=== PATIENT | male | born 1995 | race Two or more races ===

== ENCOUNTER 2016-06-03 08:50 | Emergency (ER) | payer SELFPAY ==
[2016-06-03 09:08] VITALS: BP 147/75
[2016-06-03] MEDS ORDERED: NORMAL SALINE 1000 ML 1,000 ML IV ONE (09:42)
[2016-06-03] MEDS ORDERED: ONDANSETRON 4 MG TAB.RAPDIS PO ONE (09:48)
[2016-06-03] MEDS ORDERED: ONDANSETRON 4 MG TAB.RAPDIS ONE (09:48)
--- NOTE | 2016-06-03 11:17 | ER Document Report ---
ED General - General Chief Complaint: Abdominal Pain Stated Complaint: VOMITING TRAVEL OUTSIDE OF THE [place] IN LAST 30 DAYS: No - HPI Patient complains to provider of: nausea vomiting diarrhea Notes: Patient is being seen today for nausea vomiting diarrhea upper and lower abdominal pain. Patient states started earlier this morning. Patient states he was drinking last night approximately 2 shots. Patient states he vomited this morning there worsen streaks of blood in his vomitus. Patient denies a history of alcoholism or drinking daily. No smoking or drugs. Upon my evaluation patient is resting comfortably. Denies any recent antibiotics denies any fevers chills denies any sick contacts. - Related Data Allergies/Adverse Reactions: No Known Allergies Allergy (Unverified 06/03/16 09:08) Past Medical History - Social History Smoking Status: Never Smoker Chew tobacco use (# tins/day): No Frequency of alcohol use: Social Drug Abuse: None Family History: Reviewed & Not Pertinent Patient has suicidal ideation: No Patient has homicidal ideation: No Renal/ Medical History: Denies: Hx Peritoneal Dialysis Review of Systems - Review of Systems Constitutional: No symptoms reported EENT: No symptoms reported Cardiovascular: No symptoms reported Respiratory: No symptoms reported Gastrointestinal: Abdominal pain, Diarrhea, Nausea, Vomiting Genitourinary: No symptoms reported Male Genitourinary: No symptoms reported Musculoskeletal: No symptoms reported Skin: No symptoms reported Hematologic/Lymphatic: No symptoms reported Neurological/Psychological: No symptoms reported -: Yes All other systems reviewed and negative Physical Exam - Vital signs Vitals: Temp Pulse Resp BP Pulse Ox 97.9 F 114 H 18 147/75 H 96 06/03/16 09:06 06/03/16 09:06 06/03/16 09:06 06/03/16 09:06 06/03/16 09:06 Interpretation: Normal - General General appearance: Appears well, Alert - HEENT Head: Normocephalic, Atraumatic Eyes: Normal Pupils: PERRL - Respiratory Respiratory status: No respiratory distress Chest status: Nontender Breath sounds: Normal Chest palpation: Normal - Cardiovascular Rhythm: Regular Heart sounds: Normal auscultation Murmur: No - Abdominal Inspection: Normal Distension: No distension Bowel sounds: Normal Tenderness: Tender - Diffuse mild abdominal pain but no guarding no rebound. No : McBurney's point, Sims's sign, Guarding, Rebound Organomegaly: No organomegaly - Back Back: Normal, Nontender - Extremities General upper extremity: Normal inspection, Nontender, Normal color, Normal ROM , Normal temperature General lower extremity: Normal inspection, Nontender, Normal color, Normal ROM , Normal temperature, Normal weight bearing. No: Balaji's sign - Neurological Neuro grossly intact: Yes Cognition: Normal Orientation: AAOx4 [place] Coma Scale Eye Opening: Spontaneous [place] Coma Scale Verbal: Oriented [place] Coma Scale Motor: Obeys Commands [place] Coma Scale Total: 15 Speech: Normal Motor strength normal: LUE, RUE, LLE, RLE Sensory: Normal - Psychological Associated symptoms: Normal affect, Normal mood - Skin Skin Temperature: Warm Skin Moisture: Dry Skin Color: Normal Course - Re-evaluation Re-evalutation: 06/03/16 15:19 Patient was given anti-medics and then a by mouth challenge patient was able to tolerate by mouth. The patient presents with abdominal pain without signs of peritonitis or other life-threatening or serious etiology. The patient appears stable for discharge and has been instructed to return immediately if the symptoms worsen in any way, or in 8-12hr if not improved for re-evaluation. The patient has been instructed to return if the symptoms worsen or change in any way.. - Vital Signs Vital signs: Temp Pulse Resp BP Pulse Ox 97.9 F 114 H 18 147/75 H 96 06/03/16 09:06 06/03/16 09:06 06/03/16 09:06 06/03/16 09:06 06/03/16 09:06 Discharge - Discharge Clinical Impression: Nausea vomiting and diarrhea Condition: Good Disposition: HOME, SELF-CARE Instructions: Abdominal Pain ([facility]), Gastroenteritis (adult) ([facility]) Additional Instructions: More likely you have a upset stomach or a GI virus. Please take medication as prescribed for your symptoms please drink plenty of water and Gatorade to stay hydrated. Please avoid foods that are fried greasy or oily Prescriptions: Dicyclomine HCl [Bentyl 20 mg Tablet] 20 mg PO QID #40 tablet Metoclopramide HCl [Reglan] 5 mg PO Q6 #30 tablet Forms: Return to Work
== END 2016-06-03 11:39 | disposition home or self-care (01) ==
LOC: ER 08:50
DX: R10.10 Upper abdominal pain, unspecified (principal); R10.30 Lower abdominal pain, unspecified; R11.2 Nausea with vomiting, unspecified; R19.7 Diarrhea, unspecified
CPT/HCPCS: 99284; S0119

== ENCOUNTER 2016-08-13 12:13 | Emergency (ER) | payer SELFPAY ==
[2016-08-13] MEDS ORDERED: TETRACAINE HCL 0.5% OPH SOLN 2 ML OS ONE (13:20)
[2016-08-13 13:23] VITALS: BP 142/73
--- NOTE | 2016-08-13 14:21 | ER Document Report ---
HPI - HPI Patient complains to provider of: Left eye redness Onset: Other - 2 days Onset/Duration: Persistent Quality of pain: Achy Pain Level: 3 Context: Patient complains of left eye redness, drainage and pain for the past 2 days. Patient does not wear glasses or contact lenses. Patient denies any injury. Patient is concerned that he has pinkeye. Associated Symptoms: Other - I drainage Exacerbated by: Denies Relieved by: Denies Similar symptoms previously: Yes Recently seen / treated by doctor: No - ROS ROS below otherwise negative: Yes Systems Reviewed and Negative: Yes All other systems reviewed and negative - CONSTITUTIONAL Constitutional: DENIES: Fever - EENT EENT: REPORTS: Eye problems - NEURO Neurology: DENIES: Headache - CARDIOVASCULAR Cardiovascular: DENIES: Chest pain - GASTROINTESTINAL Gastrointestinal: DENIES: Nausea, Patient vomiting - DERM Skin Color: Normal Skin Problems: None Past Medical History - General Information source: Patient - Social History Smoking Status: Current Every Day Smoker Frequency of alcohol use: Occasional Drug Abuse: None Occupation: service clerk Lives with: Family Family History: Reviewed & Not Pertinent Patient has suicidal ideation: No Patient has homicidal ideation: No - Medical History Medical History: Negative Renal/ Medical History: Denies: Hx Peritoneal Dialysis Surgical Hx: Negative Vertical Provider Document - CONSTITUTIONAL Agree With Documented VS: Yes Exam Limitations: No Limitations General Appearance: WD/WN, No Apparent Distress - INFECTION CONTROL TRAVEL OUTSIDE OF THE [place] IN LAST 30 DAYS: No - HEENT HEENT: Atraumatic, Normocephalic, PERRLA Notes: no fluroscein uptake, no corneal abrasion/ulcer or dendrite, no foreign body left sclera injected with mucoid drainage to eyelashes. EOMI - NECK Neck: Normal Inspection, Supple - RESPIRATORY Respiratory: Breath Sounds Normal, No Respiratory Distress O2 Sat by Pulse Oximetry: 98 - CARDIOVASCULAR Cardiovascular: Regular Rate, Regular Rhythm - MUSCULOSKELETAL/EXTREMETIES Musculoskeletal/Extremeties: MAEW - NEURO Level of Consciousness: Awake, Alert, Appropriate Motor/Sensory: No Motor Deficit - DERM Integumentary: Warm, Dry, No Rash Course - Re-evaluation Re-evalutation: 08/13/16 14:20 pt advised of elevated blood pressure reading here and advised to recheck with a pcp this week for a recheck - Vital Signs Vital signs: Temp Pulse Resp BP Pulse Ox 97.9 F 64 20 142/73 H 98 08/13/16 12:37 08/13/16 12:37 08/13/16 12:37 08/13/16 12:37 08/13/16 12:37 Discharge - Discharge Clinical Impression: Elevated blood pressure reading Conjunctivitis Qualifiers: Conjunctivitis type: unspecified Laterality: left Qualified Code(s): H10.9 - Unspecified conjunctivitis Condition: Stable Disposition: HOME, SELF-CARE Instructions: Conjunctivitis ([facility]), Eyedrop Use ([facility]) Additional Instructions: return as needed for any new or worsening symptoms follow up with opthamologist for any continued problems Prescriptions: Polymyxin B Sulfate/Tmp [Polytrim Oph Soln 10 ml] 1 drop LFT_EYE ASDIR #1 bottle Forms: Elevated Blood Pressure, Return to Work Referrals: [facility] [Provider Group] - Follow up as needed [facility] [Provider Group] - Follow up as needed
== END 2016-08-13 14:40 | disposition home or self-care (01) ==
LOC: ER 12:13
DX: H10.9 Unspecified conjunctivitis (principal); R03.0 Elevated blood-pressure reading, without diagnosis of hypertension; F17.200 Nicotine dependence, unspecified, uncomplicated
CPT/HCPCS: 99282

== ENCOUNTER 2016-08-22 11:09 | Emergency (ER) | payer SELFPAY ==
[2016-08-22 11:17] VITALS: BP 146/88
--- NOTE | 2016-08-22 11:28 | ER Document Report ---
ED Eye Complaint - General Chief Complaint: Eye Problem Stated Complaint: EYE PAIN Time Seen by Provider: 08/22/16 11:21 Information source: Patient TRAVEL OUTSIDE OF THE [place] IN LAST 30 DAYS: No - HPI Patient complains to provider of: Right eye redness and matting for 2 weeks Quality of pain: No pain Associated symptoms: Itching, Redness, Matting - Related Data Allergies/Adverse Reactions: No Known Allergies Allergy (Verified 08/22/16 11:15) Past Medical History - General Information source: Patient - Social History Smoking Status: Never Smoker Cigarette use (# per day): No Chew tobacco use (# tins/day): No Smoking Education Provided: No Family History: Reviewed & Not Pertinent Patient has suicidal ideation: No Patient has homicidal ideation: No Renal/ Medical History: Denies: Hx Peritoneal Dialysis Review of Systems - Review of Systems Constitutional: No symptoms reported EENT: Eye discharge Cardiovascular: No symptoms reported Respiratory: No symptoms reported Gastrointestinal: No symptoms reported Genitourinary: No symptoms reported Male Genitourinary: No symptoms reported Musculoskeletal: No symptoms reported Skin: No symptoms reported Hematologic/Lymphatic: No symptoms reported Neurological/Psychological: No symptoms reported Physical Exam - Vital signs Vitals: Temp Pulse Resp BP Pulse Ox 98.4 F 65 16 146/88 H 98 08/22/16 11:15 08/22/16 11:15 08/22/16 11:15 08/22/16 11:15 08/22/16 11:15 Interpretation: Normal - General General appearance: Appears well, Alert - HEENT Head: Normocephalic, Atraumatic Eyes: Normal Eyelashes: Normal Pupils: PERRL Visual acuity- Both eyes: 20/20 Corrective lenses worn: No Lids everted for exam: bilateral: Normal - Respiratory Respiratory status: No respiratory distress Chest status: Nontender Breath sounds: Normal Chest palpation: Normal - Cardiovascular Rhythm: Regular Heart sounds: Normal auscultation Murmur: No - Abdominal Inspection: Normal Distension: No distension Bowel sounds: Normal Tenderness: Nontender Organomegaly: No organomegaly - Back Back: Normal, Nontender - Extremities General upper extremity: Normal inspection, Nontender, Normal color, Normal ROM , Normal temperature General lower extremity: Normal inspection, Nontender, Normal color, Normal ROM , Normal temperature, Normal weight bearing. No: Balaji's sign - Neurological Neuro grossly intact: Yes Cognition: Normal Orientation: AAOx4 [place] Coma Scale Eye Opening: Spontaneous [place] Coma Scale Verbal: Oriented [place] Coma Scale Motor: Obeys Commands [place] Coma Scale Total: 15 Speech: Normal Motor strength normal: LUE, RUE, LLE, RLE Sensory: Normal - Psychological Associated symptoms: Normal affect, Normal mood - Skin Skin Temperature: Warm Skin Moisture: Dry Skin Color: Normal Course - Re-evaluation Re-evalutation: 08/22/16 11:25 This is a 21-year-old male presented to the emergency room today stating that he had conjunctivitis for approximately 2 weeks he was seen here on the and prescribed Polytrim ointment and has not followed up with the suggested eye doctor follow-up the conjunctivitis has persisted. Presents today with 20/20 vision he does have yellow discharge matting in the morning redness to the sclera states that his vision has been uninterrupted. And again repeats that he has not followed up with the eye doctor. - Vital Signs Vital signs: Temp Pulse Resp BP Pulse Ox 98.4 F 65 16 146/88 H 98 08/22/16 11:15 08/22/16 11:15 08/22/16 11:15 08/22/16 11:15 08/22/16 11:15 Discharge - Discharge Clinical Impression: Conjunctivitis Qualifiers: Conjunctivitis type: unspecified Laterality: right Qualified Code(s): H10.9 - Unspecified conjunctivitis Disposition: HOME, SELF-CARE Instructions: Antibiotic Therapy ([facility]), Eyedrop Use ([facility]), Conjunctivitis ([facility]) Additional Instructions: Conjunctivitis You have an infection in your eye, commonly known as "pink eye." Conjunctivitis causes redness, mild discomfort, itching, and mattering on the eyelids. It is very contagious, so you must be careful to wash your hands after touching your face so you don't pass the infection on to others. Conjunctivitis is caused by both viruses and bacteria. It usually responds quickly to treatment with antibiotic drops. These should be placed in the eye as prescribed (usually every three to four hours while you're awake). If you wear contact lenses, don't put them in your eyes until the infection is cleared and you are no longer using the drops (unless your doctor advises you otherwise). Should you develop increasing eye pain, severe swelling, decreased vision, or fail to improve as expected, please return for re-examination. Follow-up eye doctor as previously suggested warm compresses to the affected eye 4-5 times a day increase fluid rest. Follow-up with private doctor in 1 to 2 days for final radiology readings please return to the emergency room for any change worsening condition. Follow up with private M.D. for all other routine health care needs. Prescriptions: Na Sulfacetm/Prednisol AC [Blephamide Eye Drops] 5 ml OP 5XD #1 drops.susp
== END 2016-08-22 11:45 | disposition home or self-care (01) ==
LOC: ER 11:09
DX: H10.9 Unspecified conjunctivitis (principal)
CPT/HCPCS: 99283

== ENCOUNTER 2017-08-16 15:52 | Emergency (ER) | payer SELFPAY ==
--- NOTE | 2017-08-16 17:27 | ER Document Report ---
ED Medical Screen (RME) - General Chief Complaint: Headache Stated Complaint: HEADACHE Time Seen by Provider: 08/16/17 17:17 Notes: RAPID MEDICAL EVALUATION DISCLOSURE I have seen this patient as part of a Rapid Medical Evaluation and, if applicable, placed any initially appropriate orders. The patient will be seen and fully evaluated, including a full history and physical exam, by a provider ( in Main ED or Fast Track) when a room becomes available. 22-year-old male here with complaints of left-sided headache left upper/lower extremity numbness weakness that started yesterday evening and has progressively worsened. States he is now not able to pick things up with his left hand and is dropping items. He has also had chest pain left-sided radiating up to the neck over the same time. He has no prior personal or family history of cerebral aneurysm. He does not take blood thinners. He denies any head trauma. Denies any prior history of stroke. EXAM Right upper/lower extremity strength 5/5 with intact sensation Left upper extremity strength 2/5 with sensory deficit present Left lower extremity strength 4/5 with sensory deficit present TRAVEL OUTSIDE OF THE [place] IN LAST 30 DAYS: No - Related Data Allergies/Adverse Reactions: No Known Allergies Allergy (Verified 08/16/17 17:17) Past Medical History - Social History Chew tobacco use (# tins/day): No Frequency of alcohol use: Occasional Drug Abuse: None Renal/ Medical History: Denies: Hx Peritoneal Dialysis Physical Exam - Vital signs Vitals: Temp Pulse Resp BP Pulse Ox 99.4 F 72 18 151/85 H 99 08/16/17 16:00 08/16/17 16:00 08/16/17 16:00 08/16/17 16:00 08/16/17 16:00 Course - Vital Signs Vital signs: Temp Pulse Resp BP Pulse Ox 99.4 F 72 18 151/85 H 99 08/16/17 16:00 08/16/17 16:00 08/16/17 16:00 08/16/17 16:00 08/16/17 16:00
--- NOTE | 2017-08-16 17:57 | RADIOLOGY REPORT (SQ) ---
EXAM DESCRIPTION: CT HEAD WITHOUT COMPLETED DATE/TIME: 08/16/2017 5:40 pm REASON FOR STUDY: L sided RANGEL w L sided weakness numb; bleed infarct? COMPARISON: None. TECHNIQUE: Axial images acquired through the brain without intravenous contrast. Images reviewed wi th bone, brain and subdural windows. Additional sagittal and coronal reconstructions were generated. Images stored on PACS. All CT scanners at this facility use dose modulation, iterative reconstruction, and/or weight based d osing when appropriate to reduce radiation dose to as low as reasonably achievable (ALARA). [facility]: Dose Right [facility]: CareDose [facility]: Dose Right [facility]: Teradose 4D [facility]: Smart [employer] RADIATION DOSE: CT Rad equipment meets quality standard of care and radiation dose reduction techniq ues were employed. CTDIvol: 53.2 mGy. DLP: 1017 mGy-cm. mGy. LIMITATIONS: None. FINDINGS: VENTRICLES: Normal size and contour. CEREBRUM: No masses. No hemorrhage. No midline shift. No evidence for acute infarction. Normal gra y/white matter differentiation. No areas of low density in the white matter. CEREBELLUM: No masses. No hemorrhage. No alteration of density. No evidence for acute infarction. EXTRAAXIAL SPACES: No fluid collections. No masses. ORBITS AND GLOBE: No intra- or extraconal masses. Normal contour of globe without masses. CALVARIUM: No fracture. PARANASAL SINUSES: No fluid or mucosal thickening. SOFT TISSUES: No mass or hematoma. OTHER: No other significant finding. IMPRESSION: NORMAL BRAIN CT WITHOUT CONTRAST. EVIDENCE OF ACUTE STROKE: NO. COMMENT: Quality ID # [id number]: Final reports with documentation of one or more dose reduction techniques (e.g., Automated exposure control, adjustment of the mA and/or kV according to patient size, use of iterative reconstruction technique) TECHNICAL DOCUMENTATION: JOB ID: [id number] [employer]- All Rights Reserved Reading location - IP/workstation name: [email or web address]
--- NOTE | 2017-08-16 18:21 | RADIOLOGY REPORT (SQ) ---
EXAM DESCRIPTION: CHEST 2 VIEWS COMPLETED DATE/TIME: 08/16/2017 5:42 pm REASON FOR STUDY: CP COMPARISON: None. EXAM PARAMETERS: NUMBER OF VIEWS: two views TECHNIQUE: Digital Frontal and Lateral radiographic views of the chest acquired. RADIATION DOSE: NA LIMITATIONS: none FINDINGS: LUNGS AND PLEURA: No opacities, masses or pneumothorax. No pleural effusion. MEDIASTINUM AND HILAR STRUCTURES: No masses or contour abnormalities. HEART AND VASCULAR STRUCTURES: Heart normal size. No evidence for failure. BONES: No acute findings. HARDWARE: None in the chest. OTHER: No other significant finding. IMPRESSION: NO ACUTE RADIOGRAPHIC FINDING IN THE CHEST. TECHNICAL DOCUMENTATION: JOB ID: [id number] [place]-72 2010 [employer]- All Rights Reserved Reading location - IP/workstation name: [email or web address]
[2017-08-16 18:33] LABS: ABSOLUTE BASOPHILS # (AUTO) 0.1 10^3/uL (0.0-0.2); ABSOLUTE EOSINOPHILS # (AUTO) 0.2 10^3/uL (0.0-0.6); ABSOLUTE LYMPHOCYTES (AUTO) 4.4 10^3/uL (0.5-4.7); ABSOLUTE MONOCYTES (AUTO) 0.8 10^3/uL (0.1-1.4); ABSOLUTE NEUT (AUTO) 8.6 10^3/uL (1.7-8.2); BASOPHILS % (AUTO) 0.5 % (0-2); EOSINOPHILS % (AUTO) 1.3 % (0-6); HEMATOCRIT 47.9 % (37.9-51.0); HEMOGLOBIN 15.7 g/dL (13.5-17.0); MEAN CORPUSCULAR HEMOGLOBIN 30.1 pg (27.0-33.4); MEAN CORPUSCULAR HGB CONC 32.9 g/dL (32.0-36.0); MEAN CORPUSCULAR VOLUME 92 fl (80-97); MONOCYTES % (AUTO) 5.9 % (3-13); PLATELET COUNT 269 10^3/uL (150-450); RED BLOOD COUNT 5.23 10^6/uL (4.35-5.55); RED CELL DISTRIBUTION WIDTH 14.4 % (11.5-14.0); SEGMENTED NEUTROPHILS % (AUTO) 61.3 % (42-78); TOTAL CELLS COUNTED % (AUTO) 100 %
[2017-08-16] MEDS ORDERED: ASPIRIN 81 MG TABLET, CHEWABLE PO ONE (18:33)
[2017-08-16 18:37] LABS: INTERNATIONAL RATION (INR) 0.97; PARTIAL THROMBOPLASTIN TIME 30.8 SEC (23.5-35.8); PROTHROMBIN TIME 13.4 SEC (11.4-15.4)
[2017-08-16 18:50] LABS: ANION GAP 15 (5-19); BLOOD UREA NITROGEN 9 mg/dL (7-20); CALCIUM 9.9 mg/dL (8.4-10.2); CARBON DIOXIDE 30 mmol/L (22-30); CHLORIDE 103 mmol/L (98-107); GLUCOSE 103 mg/dL (75-110); SODIUM 147.7 mmol/L (137-145)
[2017-08-16] MEDS ORDERED: HALOPERIDOL LACTATE INJ 5 MG/1 ML VIAL IV ONE (19:25)
[2017-08-16] MEDS ORDERED: NORMAL SALINE 1000 ML 1,000 ML IV ONE (19:26)
[2017-08-16] MEDS ORDERED: DEXAMETHASONE SOD PHOS INJ 10 MG/1 ML VIAL IV ONE (20:08)
--- NOTE | 2017-08-16 20:09 | ER Document Report ---
ED General - General Chief Complaint: Headache Stated Complaint: HEADACHE Time Seen by Provider: 08/16/17 17:17 Notes: Patient is a 22-year-old male without chronic medical problems who presents with 2 complaints. His first complaint is of a left-sided headache that is dull , throbbing, constant, and aching. He states that this started last night and has been progressively worsening since that time. He notes that he feels his entire left side of his body is weak and somewhat numb. He reports that he has a history of complex migraines as a child but has not had one as an adult. He states that since onset of these symptoms he has developed a left-sided chest discomfort that is a stabbing, aching pain. Nothing seems to improve or worsen this pain. He denies any history of cardiac pathology, DVT or pulmonary embolus in the past. His mother at the bedside reports that she feels the patient has become quite anxious regarding his headache and left-sided weakness. He has not seen his primary care doctor regarding today's concerns. He has not had any fever or constitutional symptoms. TRAVEL OUTSIDE OF THE [place] IN LAST 30 DAYS: No - Related Data Allergies/Adverse Reactions: No Known Allergies Allergy (Verified 08/16/17 17:17) Past Medical History - General Information source: Patient - Social History Smoking Status: Current Some Day Smoker Chew tobacco use (# tins/day): No Frequency of alcohol use: Social Drug Abuse: None Lives with: Parents Family History: Reviewed & Not Pertinent Patient has suicidal ideation: No Patient has homicidal ideation: No Renal/ Medical History: Denies: Hx Peritoneal Dialysis Review of Systems - Review of Systems Notes: Constitutional: Negative for fever. HENT: Negative for sore throat. Eyes: Negative for visual changes. Cardiovascular: Positive for chest pain. Respiratory: Negative for shortness of breath. Gastrointestinal: Negative for abdominal pain, vomiting or diarrhea. Genitourinary: Negative for dysuria. Musculoskeletal: Negative for back pain. Skin: Negative for rash. Neurological: Positive for headaches and left-sided weakness 10 point ROS negative except as marked above and in HPI. Physical Exam - Vital signs Vitals: Temp Pulse Resp BP Pulse Ox 99.4 F 72 18 151/85 H 99 08/16/17 16:00 08/16/17 16:00 08/16/17 16:00 08/16/17 16:00 08/16/17 16:00 Interpretation: Hypertensive Notes: PHYSICAL EXAMINATION: GENERAL: Appears uncomfortable but in no acute distress HEAD: Atraumatic, normocephalic. EYES: Pupils equal round and reactive to light, extraocular movements intact, sclera anicteric, conjunctiva are normal. ENT: nares patent, oropharynx clear without exudates. Moist mucous membranes. NECK: Normal range of motion, supple without lymphadenopathy LUNGS: Breath sounds clear to auscultation bilaterally and equal. No wheezes rales or rhonchi. HEART: Regular rate and rhythm without murmurs ABDOMEN: Soft, nontender, normoactive bowel sounds. No guarding, no rebound. No masses appreciated. EXTREMITIES: Normal range of motion, no pitting or edema. No cyanosis. NEUROLOGICAL: 5 out of 5 strength both distally and proximally in the right upper and lower extremity. 4- out of 5 strength both distally and proximally in the left upper and lower extremity. Sensation is grossly intact throughout. Cranial nerves II through XII intact. Speech normal. PSYCH: Moderately anxious, tearful SKIN: Warm, Dry, normal turgor, no rashes or lesions noted. Course - Re-evaluation Re-evalutation: 08/16/17 20:08 Patient presents with 24 hours of progressively worsening left-sided headache with associated left upper and lower extremity weakness on examination. CT the head unremarkable. Labs unremarkable. Patient's clinical history appears most consistent with a complex migraine headache and he does have a history of the same. He does have 4- biceps and triceps strength as well as 4- 4- left distal and proximal strength on the lower extremity. Right side strength upper and lower is 5 out of 5. Will proceed with a migraine cocktail and if this is not resolving the patient's neurologic deficits we will need to proceed with an MRI of the head to further clarify if there is any evidence of acute stroke. 08/16/17 21:01 Patient has had complete resolution of all of his former neurologic deficits. Headache has resolved. He is somewhat anxious as a result of haloperidol. Lorazepam to try to counteract this effect. The remainder of his workup is otherwise unremarkable. He had been complaining of some chest discomfort which I do not suspect to be any acute life-threatening pathology such as a pneumothorax, acute pulmonary embolus, or ACS given his negative troponin, normal EKG, normal chest x-ray and reassuring history and lack of any risk factors for a serious etiology of his chest pain. At this time will discharge with return precautions and follow-up recommendations. Verbal discharge instructions given a the bedside and opportunity for questions given. Medication warnings reviewed. Patient is in agreement with this plan and has verbalized understanding of return precautions and the need for primary care follow-up in the next 24-72 hours. - Vital Signs Vital signs: Temp Pulse Resp BP Pulse Ox 98.9 F 72 17 108/58 L 98 08/16/17 21:52 08/16/17 16:00 08/16/17 21:31 08/16/17 21:31 08/16/17 21:31 - Laboratory Result Diagrams: 08/16/17 18:10 08/16/17 18:10 Laboratory results interpreted by me: 08/16/17 08/16/17 18:10 18:10 WBC 14.0 H RDW 14.4 H Absolute Neutrophils 8.6 H Sodium 147.7 H - Diagnostic Test Radiology reviewed: Image reviewed, Reports reviewed Radiology results interpreted by me: 08/16/17 21:03 CT head: No acute intracranial bleed or mass Chest x-ray: No evidence of a pneumothorax or infiltrate - EKG Interpretation by Me Additional EKG results interpreted by me: 08/16/17 21:04 Sinus rhythm. Rate 69. No ST elevations or depressions. QTC is 433. Discharge - Discharge Clinical Impression: Left-sided weakness, Chest discomfort Migraine headache Qualifiers: Migraine type: unspecified Status migrainosus presence: with status migrainosus Intractability: not intractable Qualified Code(s): G43.901 - Migraine, unspecified, not intractable, with status migrainosus Condition: Good Disposition: HOME, SELF-CARE Additional Instructions: You were seen today for a migraine headache. Please follow-up with your primary care doctor regarding today's ED visit. Return to emergency department immediately if you develop a headache that gets to its maximum severity within 20 minutes of onset, you pass out, you develop weakness, numbness, changes in your vision, become unable to keep any fluids down for more than 12 hours, or develop a fever greater than 100.4 degrees Fahrenheit. If you develop a similar migraine headache in the future I recommend that you immediately take 600 mg of ibuprofen and 50 mg of Benadryl and go to sleep as quickly as possible. This can often prevent your migraine headache from becoming severe. You were seen today for chest pain. The exact cause of your pain is unclear. However, based on your cardiac enzyme testing, chest x-ray, and EKG it does not appear that it is from an immediately life-threatening cause at this time. Please return to emergency department immediately if you have worsening of your chest pain, shortness of breath, vomiting, become unable to exert yourself due to pain or difficulty breathing, you pass out, or have any pain that radiates into your arms, jaw, or back. Please also return if you have any additional symptoms that are concerning to you. Forms: Return to Work
[2017-08-16] MEDS ORDERED: LORAZEPAM INJ 2 MG/1 ML VIAL IV ONE (21:00)
[2017-08-16] MEDS ORDERED: KETOROLAC TROMETHAMINE INJ/PF 30 MG/1 ML SDV IV ONE (21:00)
[2017-08-16 21:35] VITALS: BP 108/58
--- NOTE | 2017-08-17 07:30 | EKG REPORT ---
SEVERITY:- BORDERLINE ECG - PAC SINUS RHYTHM BORDERLINE T ABNORMALITIES, INFERIOR LEADS : Confirmed by: David Schaffer MD 17-Aug-2017 07:29:21
== END 2017-08-16 21:57 | disposition home or self-care (01) ==
LOC: ER 15:52
DX: G43.901 Migraine, unspecified, not intractable, with status migrainosus (principal); F41.9 Anxiety disorder, unspecified; T43.4X5A Adverse effect of butyrophenone and thiothixene neuroleptics, initial encounter; Y92.238 Other place in hospital as the place of occurrence of the external cause; R53.1 Weakness; R20.0 Anesthesia of skin; R07.9 Chest pain, unspecified; F17.200 Nicotine dependence, unspecified, uncomplicated
CPT/HCPCS: 93005; 99285; 96361; 96374; 96375; 36415; 85025; 85610; 85730; 80048; 84484; 71046; 70450; 93010; J1630; J1885; J2060; J7030; J1100

== ENCOUNTER 2017-09-29 11:41 | Emergency (ER) | payer SELFPAY ==
[2017-09-29 11:45] VITALS: BP 143/90
[2017-09-29] MEDS ORDERED: ONDANSETRON ODT 4 MG TAB (6 TAB/ER DISP) PO PRN (12:49)
[2017-09-29] MEDS ORDERED: LIDOCAINE 2% VISCOUS SOLN 20 ML UDCUP PO ONE (12:49)
[2017-09-29] MEDS ORDERED: METOCLOPRAMIDE HCL ORAL SOLN 10 MG/10 ML UDCUP PO ONE (12:49)
[2017-09-29] MEDS ORDERED: MAG HYDROX/AL HYDROX/SIMETH SUSP 30 ML UDCUP PO ONE (12:49)
--- NOTE | 2017-09-29 12:49 | ER Document Report ---
ED General - General Mode of Arrival: Ambulatory Information source: Patient TRAVEL OUTSIDE OF THE [place] IN LAST 30 DAYS: No - General Chief Complaint: Abdominal Pain Stated Complaint: ABDOMINAL PAIN Time Seen by Provider: 09/29/17 12:41 Notes: 22 y.o male presents to the ED with sharp abd pain of onset last night after eating a peanut butter sandwich. He reports nausea that began with onset of abd pain. Pt reports that he initially thought that he was constipated at the start of his pain and nausea so he tried using the restroom and had a normal BM. He states that the pain is to his epigastric region and LUQ that radiates up to his throat and worsening after eating. Pt also admits to a sour taste to his mouth that began this morning. Pt denies any vomiting. Pt denies any hx of gallbladder issues or any family hx of gallbladder issues. He denies taking any medications regularly at home. (CONSTANZA CHACON) - Related Data Allergies/Adverse Reactions: No Known Allergies Allergy (Verified 09/29/17 12:39) Past Medical History - General Information source: Patient - Social History Smoking Status: Current Some Day Smoker Smoking Education Provided: Yes Frequency of alcohol use: Social Family History: Reviewed & Not Pertinent Renal/ Medical History: Denies: Hx Peritoneal Dialysis Review of Systems - Review of Systems Constitutional: No symptoms reported EENT: See HPI, Other - sour taste to mouth Cardiovascular: No symptoms reported Respiratory: No symptoms reported Gastrointestinal: See HPI, Abdominal pain, Nausea, Other - normal BMs. denies: Diarrhea, Vomiting, Constipation Genitourinary: No symptoms reported Male Genitourinary: No symptoms reported Musculoskeletal: No symptoms reported Skin: No symptoms reported Hematologic/Lymphatic: No symptoms reported Neurological/Psychological: No symptoms reported -: Yes All other systems reviewed and negative Physical Exam - Vital signs Vitals: Temp Pulse Resp BP Pulse Ox 99.0 F 92 20 143/90 H 97 09/29/17 11:44 09/29/17 11:44 09/29/17 11:44 09/29/17 11:44 09/29/17 11:44 - Notes Notes: Physical Exam: General: Alert, appears well. HEENT: Normocephalic. Atraumatic. PERRL. Extraocular movements intact. Oropharynx clear. Neck: Supple. Non-tender. Respiratory: No respiratory distress. Mild wheezing diffusely, no crackles. Cardiovascular: Regular rate and rhythm. Abdominal: Normal Inspection. Non-tender. No distension. Normal Bowel Sounds. Back: Non-tender. No deformity or step off. Extremities: Moves all four extremities. Upper extremities: Normal inspection. Normal ROM. Lower extremities: Normal inspection. No edema. Normal ROM. Neurological: Normal cognition. AAOx3. Normal speech. Psychological: Normal affect. Normal Mood. Skin: Warm. Dry. Normal color. (CONSTANZA CHACON) Course - Re-evaluation Re-evalutation: 09/29/17 12:50 Patient is well-appearing in no acute distress. He states that since yesterday he has been having intermittent sharp epigastric and left upper quadrant pain that radiates up into his throat was sour taste in his mouth. No recent fevers or illnesses. Does not take any medications on a daily basis. Signs and symptoms consistent with gastritis will provide GI cocktail and prescription for Zofran and Pepcid. Instructed patient if his symptoms are continuing despite therapy the next 24-48 hours to come back to the emergency department for reevaluation. (KIRSTEN PAGE) - Vital Signs Vital signs: Temp Pulse Resp BP Pulse Ox 99.0 F 92 20 143/90 H 97 09/29/17 11:44 09/29/17 11:44 09/29/17 11:44 09/29/17 11:44 09/29/17 11:44 Discharge - Discharge Clinical Impression: Gastritis Qualifiers: Gastritis type: other gastritis Chronicity: acute Gastritis bleeding: presence of bleeding unspecified Qualified Code(s): K29.00 - Acute gastritis without bleeding Disposition: HOME, SELF-CARE Instructions: Abdominal Pain ([facility]), Gastritis ([facility]) Additional Instructions: Symptoms are not improving in the next 24-48 hours or for any other concerning symptoms please return to emergency department for further evaluation Prescriptions: Ranitidine HCl [Zantac] 150 mg PO BID #30 tablet Scribe Attestation: 09/29/17 20:02 I personally performed the services described documentation, reviewed and edited the documentation which was dictated to describe my presence, and it accurately records my words and actions. (KIRSTEN PAGE) Scribe Documentation - Scribe Written by Luis:: Luis Carlton 09/29/17 [id number] acting as scribe for :: Ronny
== END 2017-09-29 12:45 | disposition home or self-care (01) ==
LOC: ER 11:41
DX: K29.00 Acute gastritis without bleeding (principal); R11.0 Nausea; R10.13 Epigastric pain; R10.12 Left upper quadrant pain; F17.200 Nicotine dependence, unspecified, uncomplicated
CPT/HCPCS: 99283; J3490

== ENCOUNTER 2018-10-09 14:51 | Emergency (ER) | payer SELFPAY ==
[2018-10-09] MEDS ORDERED: ONDANSETRON HCL INJ/PF 4 MG/2 ML SDV IV ONE (15:37)
--- NOTE | 2018-10-09 15:40 | ER Document Report ---
ED Medical Screen (RME) - General Chief Complaint: Nausea/Vomiting Stated Complaint: LEFT ARM PAIN,VOMITING,DIZZY Time Seen by Provider: 10/09/18 15:34 Notes: Patient is a 23-year-old male presents to the emergency department for generalized abdominal pain, nausea, vomiting since yesterday. Patient states on he also donated plasma in his left upper extremity. States bruising since that episode. Patient's denying any history of bruising problems or bleeding disorders. GENERAL: Alert, interacts well. No acute distress. ABDOMEN: Soft, generalized right upper quadrant abdominal pain noted. Non- distended. Bowel sounds present in all 4 quadrants. I have greeted and performed a rapid initial assessment of this patient. A comprehensive ED assessment and evaluation of the patient, analysis of test results and completion of the medical decision making process will be conducted by additional ED providers. I have specifically instructed the patient or family members with the patient to immediately return to any nursing staff should anything change in the patient's condition or with their chief complaint. This medical record was dictated with voice recognizing software. There may be grammatical, syntax errors that are unintended. TRAVEL OUTSIDE OF THE [place] IN LAST 30 DAYS: No - Related Data Allergies/Adverse Reactions: No Known Allergies Allergy (Verified 10/09/18 14:54) Past Medical History Renal/ Medical History: Denies: Hx Peritoneal Dialysis Physical Exam - Vital signs Vitals: Temp Pulse Resp BP Pulse Ox 98.5 F 95 16 156/96 H 98 10/09/18 14:55 10/09/18 14:55 10/09/18 14:55 10/09/18 14:55 10/09/18 14:55 Course - Vital Signs Vital signs: Temp Pulse Resp BP Pulse Ox 98.5 F 95 16 156/96 H 98 10/09/18 14:55 10/09/18 14:55 10/09/18 14:55 10/09/18 14:55 10/09/18 14:55
[2018-10-09 16:18] LABS: ABSOLUTE BASOPHILS # (AUTO) 0.1 10^3/uL (0.0-0.2); ABSOLUTE EOSINOPHILS # (AUTO) 0.1 10^3/uL (0.0-0.6); ABSOLUTE LYMPHOCYTES (AUTO) 2.7 10^3/uL (0.5-4.7); ABSOLUTE MONOCYTES (AUTO) 0.9 10^3/uL (0.1-1.4); ABSOLUTE NEUT (AUTO) 9.7 10^3/uL (1.7-8.2); BASOPHILS % (AUTO) 0.4 % (0-2); EOSINOPHILS % (AUTO) 0.7 % (0-6); HEMATOCRIT 51.1 % (37.9-51.0); HEMOGLOBIN 16.9 g/dL (13.5-17.0); MEAN CORPUSCULAR HEMOGLOBIN 30.3 pg (27.0-33.4); MEAN CORPUSCULAR HGB CONC 33.1 g/dL (32.0-36.0); MEAN CORPUSCULAR VOLUME 92 fl (80-97); MONOCYTES % (AUTO) 6.5 % (3-13); PLATELET COUNT 308 10^3/uL (150-450); RED BLOOD COUNT 5.59 10^6/uL (4.35-5.55); RED CELL DISTRIBUTION WIDTH 14.6 % (11.5-14.0); SEGMENTED NEUTROPHILS % (AUTO) 72.4 % (42-78); TOTAL CELLS COUNTED % (AUTO) 100 %; WHITE BLOOD COUNT 13.3 10^3/uL (4.0-10.5)
[2018-10-09] MEDS ORDERED: DIPHENHYDRAMINE HCL 50 MG/ML VIAL IV ONE (16:23)
[2018-10-09] MEDS ORDERED: PROCHLORPERAZINE EDISYLATE INJ 10 MG/2 ML VIAL IV ONE (16:23)
[2018-10-09] MEDS ORDERED: KETOROLAC TROMETHAMINE INJ/PF 30 MG/1 ML SDV IV ONE (16:23)
[2018-10-09 16:25] LABS: INTERNATIONAL RATION (INR) 0.94; PARTIAL THROMBOPLASTIN TIME 28.6 SEC (23.5-35.8); PROTHROMBIN TIME 12.6 SEC (11.4-15.4)
[2018-10-09] MEDS ORDERED: RINGERS SOLUTION,LACTATED 1,000 ML IV ONE (16:28)
--- NOTE | 2018-10-09 16:30 | ER Document Report ---
ED General - General Chief Complaint: Nausea/Vomiting Stated Complaint: LEFT ARM PAIN,VOMITING,DIZZY Time Seen by Provider: 10/09/18 15:34 Mode of Arrival: Ambulatory Information source: Patient Notes: 23-year-old male presented to ED for complaint of headache nausea vomiting and abdominal cramping since yesterday. He has a history of migraines in the past. Patient states he has vomited multiple times. Patient is alert oriented respirations regular and unlabored speaking in full sentences walks with a even steady gait. Patient states he smokes a third a pack a day drinks weekly and d oes not do any drugs. He does have a history and a family history of migraines. TRAVEL OUTSIDE OF THE [place] IN LAST 30 DAYS: No - HPI Onset: Yesterday Onset/Duration: Intermittent Quality of pain: Achy - Head, Cramping - Abdomen Severity: Moderate Pain Level: 3 Associated symptoms: Nausea, Vomiting, Other - Abdominal pain Exacerbated by: Denies Relieved by: Denies Similar symptoms previously: Yes Recently seen / treated by doctor: No - Related Data Allergies/Adverse Reactions: No Known Allergies Allergy (Verified 10/09/18 14:54) Past Medical History - General Information source: Patient - Social History Smoking Status: Current Every Day Smoker Cigarette use (# per day): Yes - 1/3 pack/day Smoking Education Provided: Yes - 4 minutes Frequency of alcohol use: weekly Drug Abuse: None Occupation: Small Lives with: Family Family History: Reviewed & Not Pertinent Patient has suicidal ideation: No Patient has homicidal ideation: No - Past Medical History Cardiac Medical History: Reports: None Pulmonary Medical History: Reports: None EENT Medical History: Reports: None Neurological Medical History: Reports: Hx Migraine Endocrine Medical History: Reports: None Renal/ Medical History: Reports: None Malignancy Medical History: Reports None GI Medical History: Reports: None Musculoskeletal Medical History: Reports Hx Musculoskeletal Deformity, Reports Hx Musculoskeletal Trauma Psychiatric Medical History: Reports: None Traumatic Medical History: Reports: Hx Fractures - Both arms both legs multiple fingers shoulder dislocation torn left ACL Infectious Medical History: Reports: None Surgical Hx: Negative Past Surgical History: Reports: None - Immunizations Immunizations up to date: Yes Hx Diphtheria, Pertussis, Tetanus Vaccination: Yes - July 2018 Review of Systems - Review of Systems Constitutional: No symptoms reported EENT: No symptoms reported Cardiovascular: No symptoms reported Respiratory: No symptoms reported Gastrointestinal: Abdominal pain - Cramping, Nausea, Vomiting Genitourinary: No symptoms reported Male Genitourinary: No symptoms reported Musculoskeletal: No symptoms reported Skin: No symptoms reported Hematologic/Lymphatic: No symptoms reported Neurological/Psychological: Headaches. denies: Sensory change, Weakness, Gait changes, Loss of power, Paralysis, Seizure, Lost consciousness, Speech impairment, Numbness, Tingling -: Yes All other systems reviewed and negative Physical Exam - Vital signs Vitals: Temp Pulse Resp BP Pulse Ox 98.5 F 95 16 156/96 H 98 10/09/18 14:55 10/09/18 14:55 10/09/18 14:55 10/09/18 14:55 10/09/18 14:55 Interpretation: Normal - General General appearance: Appears well, Alert - HEENT Head: Normocephalic, Atraumatic Eyes: Normal Pupils: PERRL Visual crawford normal: Yes Ears: Normal External canal: Normal Tympanic membrane: Normal Sinus: Normal Nasal: Normal Mouth/Lips: Normal Mucous membranes: Normal Pharynx: Normal Neck: Normal - Respiratory Respiratory status: No respiratory distress Chest status: Nontender Breath sounds: Normal Chest palpation: Normal - Cardiovascular Rhythm: Regular Heart sounds: Normal auscultation Murmur: No - Abdominal Inspection: Normal Distension: No distension Bowel sounds: Normal Tenderness: Nontender. No: Tender Organomegaly: No organomegaly - Back Back: Normal, Nontender - Extremities General upper extremity: Normal inspection, Nontender, Normal color, Normal ROM, Normal temperature General lower extremity: Normal inspection, Nontender, Normal color, Normal ROM, Normal temperature, Normal weight bearing. No: Balaji's sign - Neurological Neuro grossly intact: Yes Cognition: Normal Orientation: AAOx4 [place] Coma Scale Eye Opening: Spontaneous [place] Coma Scale Verbal: Oriented [place] Coma Scale Motor: Obeys Commands [place] Coma Scale Total: 15 Speech: Normal Cranial nerves: Normal Cerebellar coordination: Normal Motor strength normal: LUE, RUE, LLE, RLE Additional motor exam normals: Equal casualty underwriter Sensory: Normal Biceps - Reflex grade: 2 = Normal Triceps - Reflex grade: 2 = Normal Brachioradialis - Reflex grade: 2 = Normal Knee - Reflex grade: 2 = Normal Ankle - Reflex grade: 2 = Normal - Psychological Associated symptoms: Normal affect, Normal mood - Skin Skin Temperature: Warm Skin Moisture: Dry Skin Color: Normal Course - Re-evaluation Re-evalutation: 10/09/18 17:13 Patient states he had complete relief of his headache nausea vomiting and abdominal pain with the Compazine Benadryl and Toradol. He was also given a liter of lactated Ringer's. He had some ketones in his urine otherwise he had a mildly elevated liver enzyme and hematocrit. I have discussed these with the patient and given him a written report of the labs. Patient will be discharged home with instructions to follow-up with a primary doctor. Patient and family verbalized understanding and agreement with treatment plan 10/09/18 17:14 After performing a Medical Screening Examination, I estimate there is LOW risk for ACUTE GLAUCOMA, TEMPORAL ARTERITIS, MENINGITIS, INCRANIAL HEMORRHAGE, or ISCHEMIC STROKE thus I consider the discharge disposition reasonable. I have reevaluated this patient multiple times and no significant life threatening changes are noted. The patient and I have discussed the diagnosis and risks, and we agree with discharging home with close follow-up with the understanding that symptoms and presentations can change. We also discussed returning to the Emergency Department immediately if new or worsening symptoms occur. We have discussed the symptoms which are most concerning (e.g., changing or worsening symptoms, new numbness or weakness, vomiting, fever) that necessitate immediate return. - Vital Signs Vital signs: Temp Pulse Resp BP Pulse Ox 99.1 F 73 16 137/82 H 98 10/09/18 16:21 10/09/18 16:21 10/09/18 16:21 10/09/18 16:21 10/09/18 16:21 - Laboratory Result Diagrams: 10/09/18 15:45 10/09/18 15:45 Laboratory results interpreted by me: 10/09/18 10/09/18 10/09/18 15:45 15:45 15:45 WBC 13.3 H RBC 5.59 H Hct 51.1 H RDW 14.6 H Absolute Neutrophils 9.7 H Sodium 145.5 H BUN 6 L AST 74 H ALT 101 H Urine Ketones TRACE H Urine Ascorbic Acid 40 H Discharge - Discharge Clinical Impression: Headache Qualifiers: Headache type: unspecified Headache chronicity pattern: unspecified pattern Intractability: not intractable Qualified Code(s): R51 - Headache Nausea & vomiting Qualifiers: Vomiting type: unspecified Vomiting Intractability: non-intractable Qualified Code(s): R11.2 - Nausea with vomiting, unspecified Condition: Stable Disposition: HOME, SELF-CARE Instructions: Family Physicians / Practices Additional Instructions: HEADACHE: The physician does not feel that the headache you are experiencing has a serious underlying cause. Most headaches are due to emotional stress, with resultant muscle tension (tension headache). Occasionally, headaches are secondary to changes in the blood vessels of the scalp (vascular headache and migraine headache). Sometimes, a headache is the first symptom of another developing illness, such as a viral infection. You have no evidence of stroke, bleeding, meningitis, or other serious cause of your headache. The treatment of headaches varies with the severity and cause of the pain. Not all headaches need pain shots. In fact, there is evidence that using narcotics for headaches may make them worse in the long run. The physician will determine the therapy that's in your best interest. If you develop a fever, if the headache is different from any you've previously experienced, or if the headache progressively worsens, then call your physician at once or go to the emergency room. VOMITING: Vomiting (or nausea without vomiting) can be caused by many other different problems. It can mean that something's wrong with the stomach, such as ulcers or inflammation or the intestinal tract, such as appendicitis. But it can also be a symptom of a problem that has nothing to do with the stomach or intestines. Vomiting is common with severe headaches, earaches, tonsillitis, and kidney infections, etc. We see it with pneumonia or heart attacks. Drugs can cause nausea and vomiting. Many abdominal problems cause vomiting; for example, gallstones, kidney stones, pancreatitis, and intestinal obstruction (blocked bowels). In most cases, curing the vomiting depends on fixing the problem that caused it. For temporary relief, we may use an anti-nausea medicine. For home use, we can prescribe suppositories, chewable pills, pills that dissolve in the mouth, or liquid anti-nausea drugs. If the vomiting seems to be caused by a problem in the stomach, acid-suppressing drugs may be prescribed as well. It's important to avoid dehydration. Sip small amounts of clear liquids (soft drinks, tea, broth, etc) . Try to take fluids frequently even if you are vomiting to prevent dehydration. Take increasing amounts of fluid and when liquids are being consumed successfully, advance to small amounts of bland food (toast, soups, mashed potatoes, etc.) until you are able to resume a regular diet. Avoid aspirin, tobacco, and alcohol. If the vomiting worsens, if the problem that's making you vomit worsens, or if there's evidence of bleeding in the stomach (such as black, tarry stool, or bloody or black vomit), you should return immediately. Also, return if abdominal pain worsens or becomes localized to one area or you develop high fever. Call your doctor if you aren't improved in 24 hours. INTRAVENOUS (I V) FLUIDS: As part of your care today, you received intravenous (IV) fluids. IV fluids are administered to patients who are dehydrated or to those who have certain chemical (electrolyte) abnormalities that need correcting. USE OF DIPHENHYDRAMINE: Diphenhydramine (Benadryl) is an antihistamine and has been recommended to help treat your headache and to prevent side effects of other medications used to treat headaches. The medication can be repeated four times daily. Age Elixir (12.5 mg/tsp) 25 mg pill adult 1-2 tabs Antihistamines may cause drowsiness, especially with the first dose. Do not operate machinery or drive while under the effects of the medication. Do not combine the medication with alcohol, or with any other medication without talking to your doctor. ANTINAUSEA MEDICATION: You have been given a medication to suppress nausea and vomiting. This type of medication can be given as a shot, pill, or suppository. It will usually last for many hours. Pills and shots usually last six to eight hours, suppositories last about 12 hours. For the typical illness, only one or two doses of the medication may be necessary. Mild lightheadedness may occur. This type of medicine can cause drowsiness. Do not drive or operate dangerous machinery while under its influence. Do not mix with alcohol. See your doctor at once if you have muscle spasms or tightness, or uncontrollable motions (particularly of the neck, mouth, or jaw). Persistent vomiting or severe lightheadedness should also be evaluated by the physician. INTRAVENOUS COMPAZINE FOR HEADACHE: You have received therapy for headaches, using intravenous Compazine. This treatment is dramatically successful in relieving the headache in about 50 percent of cases. When it works, it provides a rapid method of eliminating the headache without resorting to narcotics (and the problems associated with them). Most patients still feel fully alert after the Compazine, but others may be slightly drowsy. It's best not to drive or work with machinery for six to eight hours. Do not take alcohol or other medication unless you discuss it with the doctor. If you develop tightness and spasms in your muscles, especially the neck and tongue, you should return. This is a side effect which can be treated. TORADOL INJECTION: You have been given an injection of ketorolac tromethamine (Toradol). This is an excellent, safe drug for pain control. It also has potent antiinflammatory action. You should have significant pain relief within about one hour. Toradol is not addicting and is non-sedating. It does not interfere with driving or work. Call or return if you develop itching, hives, shortness of breath, or rash. FOLLOW-UP CARE: If you have been referred to a physician for follow-up care, call the physicians office for an appointment as you were instructed or within the next two days. If you experience worsening or a significant change in your symptoms, notify the physician immediately or return to the Emergency Department at any time for re-evaluation. Prescriptions: Prochlorperazine Maleate [Compazine 10 mg Tablet] 10 mg PO Q6HP PRN #10 tablet PRN Reason: Ibuprofen [Motrin 800 mg Tablet] 800 mg PO Q8H PRN #30 tab PRN Reason: Forms: Elevated Blood Pressure, Smoking Cessation Education, Return to Work
[2018-10-09 16:38] LABS: ALANINE AMINOTRANSFERASE 101 U/L (21-72); ALBUMIN 4.5 g/dL (3.5-5.0); ALKALINE PHOSPHATASE 91 U/L (38-126); ANION GAP 12 (5-19); ASPARTATE AMINO TRANSFERASE 74 U/L (17-59); BILIRUBIN,DIRECT 0.3 mg/dL (0.0-0.4); BILIRUBIN,TOTAL 0.4 mg/dL (0.2-1.3); BLOOD UREA NITROGEN 6 mg/dL (7-20); CALCIUM 9.3 mg/dL (8.4-10.2); CARBON DIOXIDE 28 mmol/L (22-30); CHLORIDE 106 mmol/L (98-107); GLUCOSE 101 mg/dL (75-110); LIPASE 105.2 U/L (23-300); POTASSIUM 3.8 mmol/L (3.6-5.0); SODIUM 145.5 mmol/L (137-145); TOTAL PROTEIN 7.5 g/dL (6.3-8.2)
[2018-10-09 17:01] LABS: APPEARANCE,URINE CLEAR; BILIRUBIN,URINE NEGATIVE (NEGATIVE); COLOR,URINE YELLOW; GLUCOSE, URINE NEGATIVE (NEGATIVE); KETONES,URINE TRACE mg/dL (NEGATIVE); LEUKOCYTE ESTERASE,URINE NEGATIVE (NEGATIVE); NITRITE,URINE NEGATIVE (NEGATIVE); PROTEIN,URINE NEGATIVE (NEGATIVE); URINE SPECIFIC GRAVITY 1.021; UROBILINOGEN,URINE NEGATIVE mg/dL (<2.0)
[2018-10-09 17:49] VITALS: BP 144/87
== END 2018-10-09 18:01 | disposition home or self-care (01) ==
LOC: ER 14:51
DX: R51 Headache (principal); R11.2 Nausea with vomiting, unspecified; R10.9 Unspecified abdominal pain; R74.8 Abnormal levels of other serum enzymes; R71.8 Other abnormality of red blood cells; F17.210 Nicotine dependence, cigarettes, uncomplicated; Z71.6 Tobacco abuse counseling; Z86.69 Personal history of other diseases of the nervous system and sense organs; Z82.0 Family history of epilepsy and other diseases of the nervous system
CPT/HCPCS: 99406; 99284; 96361; 96374; 96375; 36415; 83690; 85025; 85610; 85730; 80053; 81001; J1200; J1885; J0780; J2405; J7120

== ENCOUNTER 2019-02-26 03:44 | Emergency (ER) | payer BC ==
[2019-02-26] MEDS ORDERED: ACETAMINOPHEN 325 MG TABLET PO ONE (05:05)
--- NOTE | 2019-02-26 05:48 | RADIOLOGY REPORT (SQ) ---
EXAM DESCRIPTION: XR CHEST 2 VIEWS COMPLETED DATE/TME: 02/26/2019 00:00 CLINICAL HISTORY: 24 years, Male, fell on right ribs, SOB COMPARISON: 08/16/2017 chest NUMBER OF VIEWS: 2 TECHNIQUE: 2 views of the chest LIMITATIONS: None. FINDINGS: Heart size normal. Mild elevation right hemidiaphragm. Lungs clear. No pneumothorax IMPRESSION: Negative chest copyright 2010 [employer]- All Rights Reserved
[2019-02-26] MEDS ORDERED: HYDROCODONE/ACETAMINOPHEN 5-325 MG TABLET PO ONE (08:09)
--- NOTE | 2019-02-26 08:12 | ER Document Report ---
ED General Pain - General Chief Complaint: Rib Pain Stated Complaint: RIB PAIN Time Seen by Provider: 02/26/19 07:48 Notes: 24 year old male has had some right sided rib soreness for about a week. No injury until about 3 am and then fell onto right side. Increased right side pain at that time. Taking tylenol at home without much relief. No fever. No sob. No nausea or vomiting. TRAVEL OUTSIDE OF THE [place] IN LAST 30 DAYS: No - HPI Onset: This morning Onset/Duration: Gradual - Related Data Allergies/Adverse Reactions: No Known Allergies Allergy (Verified 10/09/18 14:54) Past Medical History - Social History Smoking Status: Current Every Day Smoker Frequency of alcohol use: Occasional Drug Abuse: None Family History: Reviewed & Not Pertinent Patient has suicidal ideation: No Patient has homicidal ideation: No Neurological Medical History: Reports: Hx Migraine Renal/ Medical History: Denies: Hx Peritoneal Dialysis Musculoskeletal Medical History: Reports Hx Musculoskeletal Deformity, Reports Hx Musculoskeletal Trauma Traumatic Medical History: Reports: Hx Fractures - Both arms both legs multiple fingers shoulder dislocation torn left ACL - Immunizations Immunizations up to date: Yes Hx Diphtheria, Pertussis, Tetanus Vaccination: Yes - July 2018 Review of Systems - Review of Systems Constitutional: No symptoms reported EENT: No symptoms reported Cardiovascular: No symptoms reported Respiratory: No symptoms reported Gastrointestinal: No symptoms reported Genitourinary: No symptoms reported Male Genitourinary: No symptoms reported Musculoskeletal: No symptoms reported Skin: No symptoms reported Hematologic/Lymphatic: No symptoms reported Neurological/Psychological: No symptoms reported Physical Exam - Vital signs Vitals: Temp Pulse Resp BP Pulse Ox 97.9 F 105 H 20 154/86 H 98 02/26/19 03:48 02/26/19 03:48 02/26/19 03:48 02/26/19 03:48 02/26/19 03:48 Interpretation: Normal - General General appearance: Appears well, Alert - HEENT Head: Normocephalic, Atraumatic Eyes: Normal Pupils: PERRL - Respiratory Respiratory status: No respiratory distress Chest status: Tender - right sided chest wall ttp. No deformity and no crepitance. Breath sounds: Normal Chest palpation: Normal - Cardiovascular Rhythm: Regular Heart sounds: Normal auscultation Murmur: No - Abdominal Inspection: Normal Distension: No distension Bowel sounds: Normal Tenderness: Nontender Organomegaly: No organomegaly - Back Back: Normal, Nontender - Extremities General upper extremity: Normal inspection, Nontender, Normal color, Normal ROM, Normal temperature General lower extremity: Normal inspection, Nontender, Normal color, Normal ROM, Normal temperature, Normal weight bearing. No: Balaji's sign - Neurological Neuro grossly intact: Yes Cognition: Normal Orientation: AAOx4 [place] Coma Scale Eye Opening: Spontaneous [place] Coma Scale Verbal: Oriented [place] Coma Scale Motor: Obeys Commands [place] Coma Scale Total: 15 Speech: Normal Motor strength normal: LUE, RUE, LLE, RLE Sensory: Normal - Psychological Associated symptoms: Normal affect, Normal mood - Skin Skin Temperature: Warm Skin Moisture: Dry Skin Color: Normal Course - Vital Signs Vital signs: Temp Pulse Resp BP Pulse Ox 97.9 F 105 H 20 154/86 H 98 02/26/19 03:48 02/26/19 03:48 02/26/19 03:48 02/26/19 03:48 02/26/19 03:48 - Diagnostic Test Radiology reviewed: Reports reviewed Discharge - Discharge Clinical Impression: Chest wall pain Condition: Fair Disposition: HOME, SELF-CARE Instructions: Anti-Inflammatory Medication ([facility]), Chest Wall Pain ([facility]) Additional Instructions: Rest, medicines as directed. Please return here for any problems or any concerns. Limit lifting at work to no more than 10 pounds for 1 week - until 03/05 - and then resume regular work. Prescriptions: RX: Ibuprofen [Motrin 600 mg Tablet] 600 mg PO TID #30 tablet Forms: Return to Work
[2019-02-26 08:59] VITALS: BP 149/87
== END 2019-02-26 09:01 | disposition home or self-care (01) ==
LOC: ER 03:44
DX: R07.89 Other chest pain (principal); F17.200 Nicotine dependence, unspecified, uncomplicated
CPT/HCPCS: 71046; 99283

== ENCOUNTER 2019-12-20 10:12 | Emergency (ER) | payer SELFPAY ==
--- NOTE | 2019-12-20 10:48 | ER Document Report ---
ED Medical Screen (RME) - General Chief Complaint: Rectal Bleeding Stated Complaint: RECTAL BLEEDING, ABDOMINAL PAIN Notes: 24-year-old male with past medical history of anal fissures presenting today to the emergency department for rectal bleeding for 2 days. He states that he is having clots with his bowel movements. He also says that he is passing dark tarry stools as well. His bowel movements are not painful. He is not straining to use the bathroom. He also reports some lower abdominal pain that is now constant and cramping. He has not taken anything for pain relief. He is having 3-4 bowel movements a day. Has had a decreased appetite. He denies any lightheadedness, dizziness, chest pain, shortness of breath, nausea, vomiting. Physical: Patient alert, oriented. No respiratory distress. Additional physical exam limited due to triage room. I have greeted and performed a rapid initial assessment of this patient. A comprehesive ED assessment and evaluation of this patient, analysis of test results and completion of the medical decision-making process will be conducted by additional ED providers. TRAVEL OUTSIDE OF THE [place] IN LAST 30 DAYS: No - Related Data Allergies/Adverse Reactions: No Known Allergies Allergy (Verified 12/20/19 10:27) Past Medical History - Social History Chew tobacco use (# tins/day): No Frequency of alcohol use: Social Drug Abuse: None Neurological Medical History: Reports: Hx Migraine Renal/ Medical History: Denies: Hx Peritoneal Dialysis Musculoskeltal Medical History: Reports Hx Musculoskeletal Deformity, Reports Hx Musculoskeletal Trauma Traumatic Medical History: Reports: Hx Fractures - Both arms both legs multiple fingers shoulder dislocation torn left ACL - Immunizations Immunizations up to date: Yes Hx Diphtheria, Pertussis, Tetanus Vaccination: Yes - July 2018 Physical Exam - Vital signs Vitals: Temp Pulse Resp BP Pulse Ox 98.3 F 95 17 144/92 H 97 12/20/19 10:12/20/19 10:12/20/19 10:12/20/19 10:12/20/19 10:17 Course - Vital Signs Vital signs: Temp Pulse Resp BP Pulse Ox 98.3 F 95 17 144/92 H 97 12/20/19 10:28 12/20/19 10:12/20/19 10:12/20/19 10:17 12/20/19 10:17
[2019-12-20 11:21] LABS: ABSOLUTE BASOPHILS # (AUTO) 0.1 10^3/uL (0.0-0.2); ABSOLUTE EOSINOPHILS # (AUTO) 0.3 10^3/uL (0.0-0.6); ABSOLUTE LYMPHOCYTES (AUTO) 3.2 10^3/uL (0.5-4.7); ABSOLUTE MONOCYTES (AUTO) 0.5 10^3/uL (0.1-1.4); ABSOLUTE NEUT (AUTO) 7.2 10^3/uL (1.7-8.2); BASOPHILS % (AUTO) 0.5 % (0-2); EOSINOPHILS % (AUTO) 2.4 % (0-6); HEMATOCRIT 45.9 % (37.9-51.0); HEMOGLOBIN 15.7 g/dL (13.5-17.0); LYMPHOCYTES % (AUTO) 28.6 % (13-45); MEAN CORPUSCULAR HEMOGLOBIN 31.9 pg (27.0-33.4); MEAN CORPUSCULAR HGB CONC 34.3 g/dL (32.0-36.0); MEAN CORPUSCULAR VOLUME 93 fl (80-97); MONOCYTES % (AUTO) 4.4 % (3-13); PLATELET COUNT 297 10^3/uL (150-450); RED BLOOD COUNT 4.93 10^6/uL (4.35-5.55); RED CELL DISTRIBUTION WIDTH 14.1 % (11.5-14.0); SEGMENTED NEUTROPHILS % (AUTO) 64.1 % (42-78); TOTAL CELLS COUNTED % (AUTO) 100 %; WHITE BLOOD COUNT 11.3 10^3/uL (4.0-10.5)
[2019-12-20 11:46] LABS: ALBUMIN 4.7 g/dL (3.5-5.0); ALKALINE PHOSPHATASE 116 U/L (38-126); ANION GAP 8 (5-19); ASPARTATE AMINO TRANSFERASE 100 U/L (17-59); BILIRUBIN,DIRECT 0.4 mg/dL (0.0-0.4); BILIRUBIN,TOTAL 0.4 mg/dL (0.2-1.3); BLOOD UREA NITROGEN 9 mg/dL (7-20); CALCIUM 9.5 mg/dL (8.4-10.2); CARBON DIOXIDE 27 mmol/L (22-30); CHLORIDE 106 mmol/L (98-107); GLUCOSE 129 mg/dL (75-110); POTASSIUM 4.3 mmol/L (3.6-5.0); TOTAL PROTEIN 7.8 g/dL (6.3-8.2)
--- NOTE | 2019-12-20 12:36 | RADIOLOGY REPORT (SQ) ---
EXAM DESCRIPTION: CT ABD/PELVIS NO ORAL OR IV IMAGES COMPLETED DATE/TIME: 12/20/2019 12:22 pm REASON FOR STUDY: lower abd pain/bloody diarrhea COMPARISON: None. TECHNIQUE: CT scan of the abdomen and pelvis performed without intravenous or oral contrast. Images reviewed with lung, soft tissue, and bone windows. Reconstructed coronal and sagittal MPR images revi ewed. All images stored on PACS. All CT scanners at this facility use dose modulation, iterative reconstruction, and/or weight based d osing when appropriate to reduce radiation dose to as low as reasonably achievable (ALARA). [facility]: Dose Right [facility]: CareDose [facility]: Dose Right [facility]: Teradose 4D [facility]: Smart [employer] RADIATION DOSE: CT Rad equipment meets quality standard of care and radiation dose reduction techniq ues were employed. CTDIvol: 18.0 mGy. DLP: 1099 mGy-cm.mGy. LIMITATIONS: None. FINDINGS: LOWER CHEST: No significant findings. No nodules or infiltrates. NON-CONTRASTED LIVER, SPLEEN, ADRENALS: Decreased attenuation throughout the liver consistent with st eatosis. Focal area of fatty sparing in the left lobe. The spleen and adrenals are normal in appear ance. PANCREAS: Possible mass in the tail the pancreas. Contrasted study is needed for further assessment. It has possible this represents an accessory spleen. There is a splenule noted just posterior to t he pancreas and spleen. This is best demonstrated on series 3, image 32. GALLBLADDER: No identified stones by CT criteria. No inflammatory changes to suggest cholecystitis. RIGHT KIDNEY AND URETER: No suspicious masses. Assessment limited by lack of IV contrast. No signif icant calcifications. No hydronephrosis or hydroureter. LEFT KIDNEY AND URETER: No suspicious masses. Assessment limited by lack of IV contrast. No signifi cant calcifications. No hydronephrosis or hydroureter. AORTA AND RETROPERITONEUM: No aneurysm. No retroperitoneal masses or adenopathy. BOWEL AND PERITONEAL CAVITY: No obvious masses or inflammatory changes. No free fluid. APPENDIX: Normal. PELVIS, BLADDER, AND ABDOMINAL WALL:Small umbilical hernia containing omental fat only. BONES: No significant findings. OTHER: No other significant finding. IMPRESSION: 1. Hepatic steatosis. 2. Fullness in the region of the pancreatic tail. Possibly accessory spleen. Pancreatic mass is th ought to be less likely but not excluded. Contrasted study is recommended for further evaluation. COMMENT: Quality ID # [id number]: Final reports with documentation of one or more dose reduction techniques (e.g., Automated exposure control, adjustment of the mA and/or kV according to patient size, use of iterative reconstruction technique) TECHNICAL DOCUMENTATION: JOB ID: [id number] 2010 [employer]- All Rights Reserved Reading location - IP/workstation name: [facility]
--- NOTE | 2019-12-20 15:03 | ER Document Report ---
ED General - General Chief Complaint: Rectal Bleeding Stated Complaint: RECTAL BLEEDING, ABDOMINAL PAIN Time Seen by Provider: 12/20/19 11:53 Mode of Arrival: Ambulatory Information source: Patient TRAVEL OUTSIDE OF THE [place] IN LAST 30 DAYS: No - HPI Notes: Patient presents complaint of 2 days of rectal bleeding. He states is been dark and tarry. He states he is also had some lower abdominal crampy pain. He states his pain is intermittent and mild to moderate. It is crampy. It radiates across both sides of his abdomen. Nothing makes it better or worse. He states he has had soft dark and tarry stool for the last 2 days. No vomiting. He has had decreased appetite. He states he had this 1 time before several years ago and was told that he had rectal fissures. Patient denies any other known past medical history. - Related Data Allergies/Adverse Reactions: No Known Allergies Allergy (Verified 12/20/19 10:27) Past Medical History - General Information source: Patient - Social History Smoking Status: Current Every Day Smoker Chew tobacco use (# tins/day): No Frequency of alcohol use: Social Drug Abuse: None Family History: Reviewed & Not Pertinent Patient has homicidal ideation: No Neurological Medical History: Reports: Hx Migraine Renal/ Medical History: Denies: Hx Peritoneal Dialysis Musculoskeletal Medical History: Reports Hx Musculoskeletal Deformity, Reports Hx Musculoskeletal Trauma Traumatic Medical History: Reports: Hx Fractures - Both arms both legs multiple fingers shoulder dislocation torn left ACL - Immunizations Immunizations up to date: Yes Hx Diphtheria, Pertussis, Tetanus Vaccination: Yes - July 2018 Review of Systems - Review of Systems Constitutional: denies: Chills, Fever Cardiovascular: denies: Chest pain, Palpitations Respiratory: denies: Cough, Short of breath -: Yes All other systems reviewed and negative Physical Exam - Vital signs Vitals: Temp Pulse Resp BP Pulse Ox 98.3 F 95 17 144/92 H 97 12/20/19 10:17 12/20/19 10:17 12/20/19 10:17 12/20/19 10:17 12/20/19 10:17 Interpretation: Normal - General General appearance: Appears well, Alert - HEENT Head: Normocephalic, Atraumatic Eyes: Normal Pupils: PERRL - Respiratory Respiratory status: No respiratory distress Chest status: Nontender Breath sounds: Normal Chest palpation: Normal - Cardiovascular Rhythm: Regular Heart sounds: Normal auscultation Murmur: No - Abdominal Inspection: Normal Distension: No distension Bowel sounds: Normal Tenderness: Nontender Organomegaly: No organomegaly - Rectal Tenderness: No Stool: Heme positive Hemorrhoids: None Prostate: Normal - Back Back: Normal, Nontender - Extremities General upper extremity: Normal inspection, Nontender, Normal color, Normal ROM, Normal temperature General lower extremity: Normal inspection, Nontender, Normal color, Normal ROM, Normal temperature, Normal weight bearing. No: Balaji's sign - Neurological Neuro grossly intact: Yes Cognition: Normal Orientation: AAOx4 Kimmell Coma Scale Eye Opening: Spontaneous Norris Coma Scale Verbal: Oriented Kimmell Coma Scale Motor: Obeys Commands Kimmell Coma Scale Total: 15 Speech: Normal Motor strength normal: LUE, RUE, LLE, RLE Sensory: Normal - Psychological Associated symptoms: Normal affect, Normal mood - Skin Skin Temperature: Warm Skin Moisture: Dry Skin Color: Normal Course - Re-evaluation Re-evalutation: 12/20/19 16:05 Patient presented with rectal bleeding. Exam and laboratories are unremarkable as are vitals. Initial CT showed no evidence of any significant intestinal abnormalities although it showed a questionable pancreatic mass. Therefore was recommended that a CT be repeated with contrast. At this time we are waiting on the CT to be done and to be read. The care of this patient be transferred to Dr. Patel. He will follow-up on CT to determine final disposition. - Vital Signs Vital signs: Temp Pulse Resp BP Pulse Ox 98.3 F 95 17 144/92 H 97 12/20/19 10:28 12/20/19 10:17 12/20/19 10:17 12/20/19 10:17 12/20/19 10:17 - Laboratory Result Diagrams: 12/20/19 10:55 12/20/19 10:55 Laboratory results interpreted by me: 12/20/19 12/20/19 10:55 10:55 WBC 11.3 H RDW 14.1 H Glucose 129 H AST 100 H ALT 157 H - Diagnostic Test Radiology reviewed: Image reviewed, Reports reviewed Discharge - Discharge Clinical Impression: Rectal bleeding Condition: Stable Disposition: OTHER
--- NOTE | 2019-12-20 16:38 | RADIOLOGY REPORT (SQ) ---
EXAM DESCRIPTION: CT ABD/PELVIS WITH IV ORAL IMAGES COMPLETED DATE/TIME: 12/20/2019 4:06 pm REASON FOR STUDY: abd pain/panc mass? on non con COMPARISON: Earlier the same day. TECHNIQUE: CT scan of the abdomen and pelvis performed using helical scanning technique with dynamic intravenous contrast injection. No oral contrast. Images reviewed with lung, soft tissue, and bone windows. Reconstructed coronal and sagittal MPR images reviewed. Delayed images for evaluation of the urinary system also acquired. All images stored on PACS. All CT scanners at this facility use dose modulation, iterative reconstruction, and/or weight based d osing when appropriate to reduce radiation dose to as low as reasonably achievable (ALARA). [facility]: Dose Right [facility]: CareDose [facility]: Dose Right [facility]: Teradose 4D [facility]: TapFit CONTRAST TYPE AND DOSE: 100 mL Omnipaque 350- low osmolar. RENAL FUNCTION: BUN 9, creatinine 0.84 RADIATION DOSE: CT Rad equipment meets quality standard of care and radiation dose reduction techniq ues were employed. CTDIvol: 19.2 - 21.1 mGy. DLP: 2254 mGy-cm.. LIMITATIONS: None. FINDINGS: LOWER CHEST: No significant findings. No nodules or infiltrates. LIVER: Fatty infiltration of the liver. SPLEEN: Normal size. No focal lesions. 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 1 adjacent to the tail the pancreas. PANCREAS: No masses. No significant calcifications. No adjacent inflammation or peripancreatic fluid collections. Pancreatic duct not dilated. GALLBLADDER: No identified stones by CT criteria. No inflammatory changes to suggest cholecystitis. ADRENAL GLANDS: No significant masses or asymmetry. RIGHT KIDNEY AND URETER: No solid masses. No significant calcifications. No hydronephrosis or hyd roureter. LEFT KIDNEY AND URETER: No solid masses. No significant calcifications. No hydronephrosis or hydrou reter. AORTA AND VESSELS: No aneurysm. No dissection. Renal arteries, SMA, celiac without stenosis. RETROPERITONEUM: No retroperitoneal adenopathy, hemorrhage or masses. BOWEL AND PERITONEAL CAVITY: No masses or inflammatory changes. No free fluid or peritoneal masses. APPENDIX: Normal. PELVIS: No mass. No free fluid. Normal bladder. ABDOMINAL WALL: Small umbilical hernia containing omental fat only. BONES: No significant or acute findings. OTHER: No other significant finding. IMPRESSION: Hepatic steatosis. 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 TECHNICAL DOCUMENTATION: JOB ID: [id number] Quality ID # [id number]: Final reports with documentation of one or more dose reduction techniques (e.g., Au tomated exposure control, adjustment of the mA and/or kV according to patient size, use of iterative reconstruction technique) 2010 [employer]- All Rights Reserved Reading location - IP/workstation name: [email or web address]
[2019-12-20 18:57] VITALS: BP 139/82
== END 2019-12-20 18:57 | disposition other institution (70) ==
LOC: ER 10:12
DX: K62.5 Hemorrhage of anus and rectum (principal); R63.0 Anorexia; K76.0 Fatty (change of) liver, not elsewhere classified; Q89.09 Congenital malformations of spleen; R10.30 Lower abdominal pain, unspecified; F17.200 Nicotine dependence, unspecified, uncomplicated; Z87.19 Personal history of other diseases of the digestive system
CPT/HCPCS: 36415; 74176; 74177; 80053; 85025; 99285